=== PATIENT | male | born 1995 | race Asian ===

== ENCOUNTER 2019-04-25 01:12 | Emergency (ER) | payer OTHER ==
[2019-04-25 01:21] VITALS: BP 123/78
--- NOTE | 2019-04-25 01:22 | ED Physician Documentation ---
History of Present Illness - Stated complaint Stated Complaint: LIGHTHEADED/CHILLS - Chief complaint Chief Complaint: General - History obtained from History obtained from: Patient - History of Present Illness Timing: Yesterday Pain level now: 0 Improved by: rest Worsened by: ambulating/exertion - Additonal information Additional information: c/o chills, lightheadedness, bilateral eye "burning". Symptoms started yesterday. mild sore throat, mild nonproductive cough. Review of Systems Constitutional: reports: Chills. denies: Fever, Myalgias, Fatigue, Sweats Throat: reports: Sore throat (mild) Cardiac: reports: Reviewed and negative Respiratory: reports: Cough. denies: Dyspnea GI: reports: Reviewed and negative Skin: denies: Rash PD PAST MEDICAL HISTORY - Past Medical History Past Medical History: No - Past Surgical History Past Surgical History: Yes General: Appendectomy - Present Medications Home Medications: Ambulatory Orders Medication Instructions Recorded Confirmed Multivitamin [Multiple Vitamins] 1 each PO DAILY 04/25/19 04/25/19 - Allergies Allergies/Adverse Reactions: Allergies Allergy/AdvReac Type Severity Reaction Status Date / Time No Known Drug Allergies Allergy Verified 04/25/19 01:18 - Social History Does the pt smoke?: No Smoking Status: Never smoker Does the pt drink ETOH?: No Does the pt have substance abuse?: No - Immunizations Immunizations are current?: Yes - POLST Patient has POLST: No PD ED PE NORMAL - Vitals Vital signs reviewed: Yes - General General: Alert and oriented X 3, No acute distress, Well developed/nourished - HEENT HEENT: PERRL, EOMI, Moist mucous membranes, Pharynx benign, Other (mild left TM erythema) - Neck Neck: Supple, no meningeal sign - Cardiac Cardiac: RRR, No murmur - Respiratory Respiratory: No respiratory distress, Clear bilaterally - Derm Derm: Normal color, Warm and dry Results - Vitals Vitals: Vital Signs - 24 hr 04/25/19 01:15 Temperature 36.6 C Heart Rate 87 Respiratory 16 Rate Blood Pressure 123/78 O2 Saturation 98 Oxygen O2 Source Room air PD MEDICAL DECISION MAKING - ED course Complexity details: considered differential, d/w patient, d/w family ED course: HPI s/o viral process but no elements of HPI/ROS/PE indicate emergent testing. Will return if worse, f/u with PMD at [facility] if not improving within next 2-3 days. Departure - Departure Disposition: Home, Self Care Clinical Impression: Acute viral syndrome Condition: Good Instructions: ED Viral Syndrome Follow-Up: OJEL Angella Gotti [Provider Group] Forms: Activity restrictions Discharge Date/Time: 04/25/19 01:45
== END 2019-04-25 01:45 | disposition home or self-care (01) ==
LOC: ED 01:12
DX: B34.9 Viral infection, unspecified (principal)
CPT/HCPCS: 99282; 99284

== ENCOUNTER 2020-11-29 15:25 | Emergency (ER) | payer OTHER ==
[2020-11-29] MEDS ORDERED: DEXAMETHASONE 10 MG/ML VIAL PO STA (15:52)
[2020-11-29] MEDS ORDERED: CHERRY SYRUP 10 ML UDC PO ONE (15:52)
[2020-11-29] MEDS ORDERED: diphenhydrAMINE 25 MG CAPSULE PO STA (15:52)
[2020-11-29] MEDS ORDERED: diphenhydrAMINE INJ 50 MG/ML VIAL IM STA (15:53)
--- NOTE | 2020-11-29 18:07 | ED Physician Documentation ---
History of Present Illness - Stated complaint Stated Complaint: HIVES - Chief complaint Chief Complaint: Allergic Rx - History obtained from History obtained from: Patient - Additonal information Additional information: 25yM with pmh seasonal allergies, nkda p/w full body rash after eating maple meatloaf. patient applied topical cortisone but it is still itching. denies nausea, dizziness, chest pain, sob, cough abd pain or other concerns. Review of Systems Ten Systems: 10 systems reviewed and negative Constitutional: denies: Fever, Chills Cardiac: denies: Chest pain / pressure Respiratory: denies: Dyspnea, Cough GI: denies: Nausea Skin: reports: Rash PD PAST MEDICAL HISTORY - Past Medical History Past Medical History: No - Past Surgical History Past Surgical History: Yes General: Appendectomy - Present Medications Home Medications: Ambulatory Orders Medication Instructions Recorded Confirmed Multivitamin [Multiple Vitamins] 1 each PO DAILY 04/25/19 04/25/19 - Allergies Allergies/Adverse Reactions: Allergies Allergy/AdvReac Type Severity Reaction Status Date / Time No Known Drug Allergies Allergy Verified 11/29/20 15:41 - Social History Does the pt smoke?: No Smoking Status: Never smoker Does the pt drink ETOH?: No Does the pt have substance abuse?: No - Immunizations Immunizations are current?: Yes - POLST Patient has POLST: No PD ED PE NORMAL - Vitals Vital signs reviewed: Yes - General General: Alert and oriented X 3, No acute distress, Well developed/nourished - HEENT HEENT: Atraumatic, PERRL, Moist mucous membranes, Pharynx benign - Neck Neck: Supple, no meningeal sign, Other (normal upper airway sounds on upper airway auscultation) - Cardiac Cardiac: RRR - Respiratory Respiratory: No respiratory distress, Clear bilaterally - Abdomen Abdomen: Non tender, Non distended - Derm Derm: Other (raised blanching erythematous rash to chest, back, legs, arms and posterior neck.) - Extremities Extremities: No deformity - Neuro Neuro: Alert and oriented X 3 - Psych Psych: Normal mood, Normal affect Results - Vitals Vitals: Vital Signs - 24 hr 11/29/20 11/29/20 15:41 18:13 Temperature 36.9 C Heart Rate 120 H 95 Respiratory 16 20 Rate Blood Pressure 118/71 109/63 O2 Saturation 98 100 Oxygen O2 Source Room air PD MEDICAL DECISION MAKING - ED course ED course: 25yM p/w generalized body rash after unknown allergen exposure. Otherwise asymptomatic. Benadryl and decadron given with improvement. Strict return precautions given. Patient will f/u with his pmd for referral to allergy/immunology for testing. Departure - Departure Disposition: 01 Home, Self Care Clinical Impression: Rash Condition: Good Instructions: ED Allergic Reaction General Other Comments: You are seen in the emergency department for an allergic reaction. You were given Benadryl and steroids with improvement. Please follow-up with your primary doctor this week. Return to the emergency department if you develop any new or worsening symptoms or have other concerns. Forms: Activity restrictions Discharge Date/Time: 11/29/20 18:20
[2020-11-29 18:13] VITALS: BP 109/63
== END 2020-11-29 18:20 | disposition home or self-care (01) ==
LOC: ED 15:25
DX: T78.40XA Allergy, unspecified, initial encounter (principal); X58.XXXA Exposure to other specified factors, initial encounter
CPT/HCPCS: 96372; 99283; 99284; A9270; J1200